=== PATIENT | male | born 1960 | race Caucasian/White ===

== ENCOUNTER → 2019-04-28 | Outpatient (CLI) | payer OTHER ==
[2019-03-29 10:46] VITALS: BP 140/83
[~2019-04-28] MED LIST: GABA300C18 PO; GLIM4TAB2 PO; INSU100I11 SQ; INSU100I32 SQ; METF10007 PO; METO-239 PO; METO100T7 PO; ROPI0.5T PO
--- NOTE | 2019-04-28 13:35 | KCIC ---
Examination: MRI of the right distal forearm without contrast HISTORY: History of right arm pain COMPARISON: None available TECHNIQUE: Multiplanar, multisequence MR imaging of the right forearm were performed without contrast FINDINGS: The alignment of the distal radius, ulna grossly appears intact. The visualized flexor tendons, extensor compartment tendon grossly appears unremarkable. There is a linear vascular structure identified in the dorsal aspect of the distal forearm dorsal to the distal radius which demonstrates high T1 signal within likely superficial vein thrombosis. Mild subcutaneous edema identified about this vascular structure. The visualized median nerve, ulnar nerve grossly appears unremarkable. IMPRESSION: 1. A superficial vein identified in the dorsal aspect of the distal forearm with high T1 signal within likely superficial vein thrombosis of the distal forearm. Mild edema identified surrounding this vascular structure likely edema. Electronically signed by: Ronal Vinson MD (04/28/2019 1:32 PM) [id number]
== END | disposition home or self-care (01) ==
LOC: KCIC MRI 11:30
PROVIDERS: ATTEND Family Medicine
DX: M79.601 Pain in right arm (principal)
CPT/HCPCS: 73218

== ENCOUNTER → 2019-04-30 | Outpatient (CLI) | payer OTHER ==
[2019-03-29 10:46] VITALS: BP 140/83
[2019-04-30 13:08] LABS: BASO # 0.1 x10^3/uL (0.0-0.2); BASO % 1 % (0-3); EOS # 0.2 x10^3/uL (0.0-0.7); EOS % 2 % (0-3); HEMATOCRIT 37.8 % (39.0-53.0); HEMOGLOBIN 12.7 g/dL (13.0-17.5); LYMPH # 1.8 x10^3/uL (1.0-4.8); LYMPH % 25 % (24-48); MEAN CORPUSCULAR HEMOGLOBIN 31 pg (25-35); MEAN CORPUSCULAR HGB CONC 34 g/dL (31-37); MEAN CORPUSCULAR VOLUME 93 fL (79-100); MONO # 0.6 x10^3/uL (0.0-1.1); MONO % 9 % (0-9); NEUT # 4.6 x10^3uL (1.8-7.7); NEUT % 63 % (31-73); PLATELET COUNT 254 x10^3/uL (140-400); RED BLOOD COUNT 4.07 x10^6/uL (4.30-5.70); WHITE BLOOD COUNT 7.3 x10^3/uL (4.0-11.0)
[2019-04-30 13:36] LABS: ALBUMIN 3.3 g/dL (3.4-5.0); CALCIUM 8.8 mg/dL (8.5-10.1); CREATININE 1.3 mg/dL (0.7-1.3); GFR 57.1; POTASSIUM 4.4 mmol/L (3.5-5.1); TOTAL BILIRUBIN 0.3 mg/dL (0.2-1.0)
[2019-05-01 09:14] LABS: HEMOGLOBIN A1C 8.3 % (4.8-5.6)
--- NOTE | 2019-05-10 18:12 | NUR ---
FAXED PRE - OP LAB REPORTS TO 'S OFFICE 05/04/2019 AT 1014 AND ALSO CALLED OFFICE AND LEFT A MESSAGE ON MELISSA'S [employer]ICEMAIL,[employer] AT 1025. ALSO RECEIVED TRANSMITTAL CONFIRMATION. MELISSA CALLED BACK AT 1315 05/04/2019 AND SAID PATIENT'S SURGERY CANCELLED PER DR. TURNER DUE TO ELEVATED HGB A1C AND GLUCOSE. CHART SEND TO MEDICAL RECORD FOR CODING.
== END | disposition home or self-care (01) ==
LOC: SURGPAT 12:18
PROVIDERS: ATTEND Surgery
DX: Z01.818 Encounter for other preprocedural examination (principal); K82.8 Other specified diseases of gallbladder; K83.8 Other specified diseases of biliary tract; K43.9 Ventral hernia without obstruction or gangrene
CPT/HCPCS: 36415; 80048; 82040; 82247; 83036; 85025

== ENCOUNTER → 2019-08-09 | Outpatient (CLI) | payer OTHER ==
[2019-03-29 10:46] VITALS: BP 140/83
[~2019-08-09] MED LIST changes: -GLIM4TAB2 PO; +GLIM4TAB4 PO
--- NOTE | 2019-08-09 10:23 | KCIC ---
EXAM: Right shoulder, 3 views. HISTORY: Pain. COMPARISON: None. FINDINGS: 3 views of the right shoulder obtained. There is no fracture, dislocation or subluxation. There is a small benign osseous excrescence along the superior acromion. There is minimal acromioclavicular osteoarthritis. There is a tiny suspected ossicle inferior to the glenoid which may be due to a joint loose body. IMPRESSION: 1. No acute osseous finding. 2. Minimal acromioclavicular osteoarthritis and possible tiny inferior glenohumeral joint loose body. Electronically signed by: Magaly Alvarado MD (08/09/2019 10:20 AM) [id number]
== END | disposition home or self-care (01) ==
LOC: KCIC 09:30
PROVIDERS: ATTEND Family Medicine
DX: M19.011 Primary osteoarthritis, right shoulder (principal)
CPT/HCPCS: 73030

== ENCOUNTER → 2019-11-24 | Outpatient (CLI) | payer OTHER ==
[2019-03-29 10:46] VITALS: BP 140/83
[~2019-11-24] MED LIST changes: -GLIM4TAB4 PO; +GLIM4TAB8 PO
--- NOTE | 2019-11-26 11:06 | KCIC ---
STUDY: MRI of the right shoulder without contrast INDICATION: Shoulder pain. Suspected rotator cuff tear. Limited range of motion. COMPARISON: 08/09/2019 radiographs. TECHNIQUE: Multiplanar MR imaging of the right shoulder performed without the use of intravenous or intra-articular contrast. FINDINGS: AC joint: Mild AC joint arthrosis with capsular hypertrophy. Trace fluid within subacromial subdeltoid bursa. Rotator cuff: Supraspinatus tendinosis. Low-grade undersurface fraying of the mid to posterior supraspinatus occurring approximately 2.2 cm medial to the footprint. Infraspinatus tendinosis as well without a high-grade tear. The teres minor is intact. Subscapularis tendinosis. Normal rotator cuff musculature signal and bulk. Labrum: Labral degeneration/tearing from superior to posterior/superior. Long head biceps tendon: Intra-articular long head biceps tendinosis extending into the bicipital groove entrance. Cartilage: No focal full-thickness chondral defect. Potential chondral fissuring at the mid central glenoid. This does not exhibit the typical appearance of a glenoid chondral bare spot. Bones: Heterogeneous marrow signal involving the visualized humeral shaft with sparing of the epiphysis. No focally aggressive signal abnormality. Mild degenerative signal changes at the greater and lesser tuberosities. Miscellaneous: Long head biceps tendon sheath synovitis. Small glenohumeral joint effusion. Mild soft tissue edema-like signal in the region of the rotator interval. Impression: 1. Supraspinatus more so than infraspinatus and subscapularis tendinosis. No high-grade or full-thickness tear. Low-grade articular sided fraying of the mid to posterior supraspinatus occurring approximately 2.2 cm medial to the footprint. Normal muscular bulk. 2. Labral degeneration/tearing from superior to posterior/superior. 3. Intra-articular long head biceps tendinosis extending into the groove entrance. 4. Small shoulder joint effusion. Mild long head biceps tendon sheath tenosynovitis. Very small amount of fluid within the subacromial subdeltoid bursa. 5. Mild edema-like signal at the rotator interval. This could be reactive to degenerative changes though can be seen in the setting of adhesive capsulitis. Recommend correlation with patient symptomatology. 6. Potential chondral fissuring at the mid central glenoid. Electronically signed by: BROOK HUERTA MD (11/26/2019 11:03 AM) [facility]
== END | disposition home or self-care (01) ==
LOC: KCIC MRI 13:36
PROVIDERS: ATTEND Orthopaedic Surgery Sports Medicine
DX: M19.011 Primary osteoarthritis, right shoulder (principal); M65.811 Other synovitis and tenosynovitis, right shoulder; M25.411 Effusion, right shoulder; M75.81 Other shoulder lesions, right shoulder
CPT/HCPCS: 73221

== ENCOUNTER → 2020-06-28 | Outpatient (CLI) | payer OTHER ==
[2019-03-29 10:46] VITALS: BP 140/83
--- NOTE | 2020-06-28 17:42 | KCIC ---
INDICATION: Reason: LEFT SHOULDER PAIN 1 MONTH / Spl. Instructions: [place] pain after rolling over in bed / History: COMPARISON: None. IMPRESSION: Left shoulder: 3 views obtained. Calcific density structure is seen at the superior lateral aspect of the shoulder adjacent to the humeral head. Could be secondary to a calcification in the soft tissues including from causes such as calcific tendinosis. There is some hypertrophic changes at the acromioclavicular joint with inferior acromial spur which can predispose the patient to rotator cuff injury. No evidence of acute fracture or dislocation. Electronically signed by: El Phipps MD (06/28/2020 5:39 PM) [id number]
== END ==
LOC: KCIC 13:09
PROVIDERS: ATTEND Family Medicine
DX: M85.812 Other specified disorders of bone density and structure, left shoulder (principal)
CPT/HCPCS: 73030

== ENCOUNTER 2020-12-08 10:51 | Emergency (ER) | payer OTHER ==
[~2020-12-08] VITALS: Ht 180.3 cm; Wt 139.0 kg
[~2020-12-08 10:51] MED LIST changes: -RIVA15TA PO
[2020-12-08] MEDS ORDERED: RIVA15TA PO (11:21)
--- NOTE | 2020-12-08 11:21 | PHYS DOC ---
Past Medical History Past Medical History: Diabetes-Type II, High Cholesterol, Hypertension, Other Additional Past Medical Histor: RESTLESS LEGS,NEUROPATHY, COVID in September 2020 Past Surgical History: Tonsillectomy Smoking Status: Never Smoker Alcohol Use: None Drug Use: None General Adult EDM: Chief Complaint: LOWER EXTREMITY SWELLING HPI: HPI: Patient is a 59 year old male presents with report of right lower extremity DVT. Patient reports has been having some right-sided swelling for the past 1 to 2 months. Reports it became more painful over the past month. Patient underwent a outpatient ultrasound which came back positive for acute DVT. Radiology had called patient's PCP who instructed him to present to the ER for further evaluation and treatment. Patient denies any shortness of air or chest pain. Denies use of blood thinners at this time. Review of Systems: Review of Systems: Constitutional: Denies fever or chills Eyes: Denies redness or eye pain HENT: Denies nasal congestion or sore throat Respiratory: Denies cough or shortness of breath Cardiovascular: Denies chest pain or palpitations GI: Denies abdominal pain, nausea, or vomiting : Denies dysuria or hematuria Musculoskeletal: Denies back pain; reports right lower extremity swelling Integument: Denies rash or skin lesions Neurologic: Denies headache, focal weakness or sensory changes Complete systems were reviewed and found to be within normal limits, except as documented in this note. Allergies: Allergies: Allergies Coded Allergies Type Severity Reaction Last Updated Verified No Known Drug Allergies 09/25/20 No Physical Exam: PE: Constitutional: Well developed, obese, no acute distress, non-toxic appearance HENT: Normocephalic, atraumatic Eyes: Conjunctiva normal, no discharge Neck: Normal range of motion, no tenderness, supple Lungs & Thorax: No respiratory distress, equal chest rise and fall Skin: Warm, dry, no erythema, no rash Extremities: No tenderness, ROM intact, 2+ edema to RLE, fullness appreciated in comparison to LLE Neurologic: Alert and oriented X 3, no focal deficits noted Psychologic: Affect normal, judgment normal Current Patient Data: Vital Signs: Vital Signs Date Time Temp Pulse Resp B/P (MAP) Pulse Ox O2 Delivery O2 Flow Rate FiO2 12/08/20 10:58 97.3 62 18 134/72 (92) 99 Room Air 97.3 EKG: EKG: [] Radiology/Procedures: Radiology/Procedures: PROCEDURE: VENOUS LOWER EXTREMITY RIGHT (outpatient) Right lower extremity venous Doppler ultrasound History: Reason: RT LEG EDEMA Comparison: None. Procedure: Color flow Doppler, Doppler spectral analysis, and 2D images are obtained with and without compression in the area of the common femoral vein, superficial femoral vein - femoral vein junction, main femoral vein (superficial femoral vein) and popliteal vein. Veins of the proximal calf are also imaged. Findings: There is occlusive thrombus of the proximal superficial femoral vein through the calf veins. These segments demonstrate noncompressibility and lack of color flow. The common femoral vein demonstrates partial thrombus with incomplete compressibility and preserved color flow and augmentation. The greater saphenous vein is patent. IMPRESSION: There is DVT throughout the right lower extremity. Electronically signed by: Ralph Benoit MD (12/08/2020 10:09 AM) [id number] Course & Med Decision Making: Course & Med Decision Making Patient presents after outpatient ultrasound revealed patient with right sided DVT. Patient reports has been having some swelling since September to the area but recently over the past month has had increased swelling and pain to the right knee. Patient underwent outpatient ultrasound today which revealed a right-sided DVT. Patient denies any chest pain or shortness of air. Sats stable. Pulses intact. Xarelto initiated. Discussed case with Dr. Dye (confectionery cooker for PCP) who is in agreement with plan. Patient stable for discharge with outpatient follow-up with PCP. Discussed fi ndings and plan with patient, who acknowledges understanding and agreement. Sherine Disclaimer: Sherine Disclaimer: This electronic medical record was generated, in whole or in part, using a voice recognition dictation system. Departure Departure Impression: Primary Impression: Acute DVT (deep venous thrombosis) Qualified Codes: I82.401 - Acute embolism and thrombosis of unspecified deep veins of right lower extremity Disposition: 01 DC HOME SELF CARE/HOMELESS Condition: STABLE Referrals: PARUL HALE MD (PCP) Patient Instructions: Deep Vein Thrombosis Scripts Rivaroxaban (XARELTO) 15 Mg Tablet 1 TAB PO BID for DVT for 21 Days, #42 TAB 0 Refills Prov: JAN GUERRA DO 12/08/20 JAN GUERRA DO Dec 08, 2020 11:21
[2020-12-08 11:30] VITALS: BP 117/64
[2020-12-08] MEDS ORDERED: RIVAROXABAN 15 MG TABLET. PO ONE (11:30)
== END 2020-12-08 11:38 | disposition home or self-care (01) ==
LOC: ER 10:51
DX: I82.401 Acute embolism and thrombosis of unspecified deep veins of right lower extremity (principal); E11.40 Type 2 diabetes mellitus with diabetic neuropathy, unspecified; E78.00 Pure hypercholesterolemia, unspecified; I10 Essential (primary) hypertension; G25.81 Restless legs syndrome
CPT/HCPCS: 99283

== ENCOUNTER → 2020-12-08 | Outpatient (CLI) | payer OTHER ==
[2020-09-29 15:45] VITALS: BP 116/65
[~2020-12-08] MED LIST changes: +PRED20TA PO; +RIVA15TA PO
--- NOTE | 2020-12-08 10:11 | RAD ---
Right lower extremity venous Doppler ultrasound History: Reason: RT LEG EDEMA Comparison: None. Procedure: Color flow Doppler, Doppler spectral analysis, and 2D images are obtained with and without compression in the area of the common femoral vein, superficial femoral vein - femoral vein junction , main femoral vein (superficial femoral vein) and popliteal vein. Veins of the proximal calf are als o imaged. Findings: There is occlusive thrombus of the proximal superficial femoral vein through the calf veins. These se gments demonstrate noncompressibility and lack of color flow. The common femoral vein demonstrates pa rtial thrombus with incomplete compressibility and preserved color flow and augmentation. The greater saphenous vein is patent. IMPRESSION: There is DVT throughout the right lower extremity. Electronically signed by: Ralph Benoit MD (12/08/2020 10:09 AM) [id number]
== END ==
LOC: US 10:06
PROVIDERS: ATTEND Nurse Practitioner Gerontology
DX: I82.411 Acute embolism and thrombosis of right femoral vein (principal); I82.4Z1 Acute embolism and thrombosis of unspecified deep veins of right distal lower extremity
CPT/HCPCS: 93971

== ENCOUNTER → 2021-06-29 | Outpatient (CLI) | payer OTHER ==
[~2021-06-29] MED LIST changes: +RIVA15TA PO
--- NOTE | 2021-06-29 08:36 | RAD ---
EXAM: Right lower extremity venous Doppler sonogram. HISTORY: DVT follow-up. TECHNIQUE: Barrera scale and color Doppler sonographic evaluation of the right lower extremity veins wit h spectral waveform analysis was performed. FINDINGS: There is nonocclusive thrombus within the proximal right superficial femoral vein and popli teal vein. There is occlusive thrombus within the mid to distal superficial femoral vein. There has b een interval resolution of previously demonstrated calf vein venous thrombosis. There is normal color flow, normal compressibility and there are normal spectral waveforms in the remainder of the lower e xtremity veins. IMPRESSION: 1. Persistent nonocclusive thrombus within the proximal right superficial femoral vein and popliteal vein and occlusive thrombus within the right mid and distal superficial femoral vein. 2. Resolution of previously demonstrated venous thrombosis involving the calf veins. Electronically signed by: Magaly Alvarado MD (06/29/2021 8:33 AM) [id number]
== END ==
LOC: US 08:16
PROVIDERS: ATTEND Family Medicine
DX: I82.411 Acute embolism and thrombosis of right femoral vein (principal); I82.431 Acute embolism and thrombosis of right popliteal vein
CPT/HCPCS: 93971

== ENCOUNTER → 2022-03-28 | Outpatient (CLI) | payer OTHER ==
--- NOTE | 2022-03-28 14:16 | KCIC ---
EXAMINATION: Right lower extremity duplex venous ultrasound. TECHNIQUE: DVT protocol. Multiple sonographic images with color Doppler and waveform interrogation we re performed of the right lower extremity veins with compression and augmentation maneuvers. INDICATION: 61 years Male, right leg RT Leg DVT. Comparison June 29, 2021 FINDINGS: There is unchanged chronic DVT seen in the right lower extremity involving the superficial femoral vein, occlusive in the mid and lower segment. There is a nonocclusive DVT in the upper segmen t of the superficial femoral vein. Nonocclusive DVT is also seen in the popliteal vein. These finding s are similar to the previous exam. The common femoral vein is patent. The profunda femoris is patent . The peroneal and posterior tibial veins are patent. IMPRESSION: Unchanged chronic DVT in the right femoral vein and the popliteal vein. Electronically signed by: Jonathan Naik MD (03/28/2022 2:14 PM) [id number]
== END ==
LOC: KCIC US 13:08
PROVIDERS: ATTEND Family Medicine
DX: I82.511 Chronic embolism and thrombosis of right femoral vein (principal); I82.531 Chronic embolism and thrombosis of right popliteal vein
CPT/HCPCS: 93971